=== PATIENT | female | born 1950 | race Caucasian/White ===

== ENCOUNTER → 2017-06-13 | Outpatient (CLI) | payer MEDICARE ==
--- NOTE | 2017-06-13 09:52 | REP ---
DUPLEX DOPPLER EVALUATION OF MESENTERIC ARTERIES: Real-time sonographic evaluation and duplex Doppler interrogation of mesenteric arteries is performed prior to and following a meal challenge. At baseline, the peak systolic velocity of the celiac axis is 113 cm/s, which is normal. The peak systolic velocity of the superior mesenteric artery proximally is 161 cm/s and distally 186 cm/s. Following a meal challenge velocities are measured at 10 minute intervals up to 40 minutes post meal challenge. Peak systolic and end diastolic velocities remain within normal range following the meal challenge. Peak systolic velocity in the proximal superior mesenteric artery reaches a maximum of 173 cm/s 10 minutes after the meal challenge and in the mid aspect of the superior mesenteric artery 260 cm/s at the 20 minute ivett. Normal Doppler spectral waveforms are noted in these vessels as well, pre and post meal challenge. IMPRESSION: No compelling duplex Doppler sonographic evidence of significant stenosis of the celiac axis or superior mesenteric artery. Signed by Doron Salgado MD 06/13/2017 04:39 P
== END ==
LOC: M RAD 06:19
PROVIDERS: ATTEND Specialist
DX: R93.3 Abnormal findings on diagnostic imaging of other parts of digestive tract (principal)

== ENCOUNTER → 2018-04-12 | Outpatient (CLI) | payer MEDICARE ==
[2018-04-12 13:48] LABS: BASO # 0.1 10^3/uL (0.0-0.2); BASO % 2.3 % (0.0-1.0); EOS # 0.2 10^3/uL (0.0-0.50); EOS % 3.6 % (0.0-3.0); HEMATOCRIT 41.3 % (36.0-47.0); HEMOGLOBIN 13.6 g/dl (12.0-15.5); IMMATURE GRANULOCYTE % 0.2 % (0-3.0); LYMPH # 1.2 10^3/uL (1.5-4.5); LYMPH % 21.2 % (24.0-44.0); MEAN CORPUSCULAR HEMOGLOBIN 29.8 pg (27.0-33.0); MEAN CORPUSCULAR HGB CONC 32.9 g/dl (32.0-36.5); MEAN CORPUSCULAR VOLUME 90.4 fl (80.0-96.0); MONO # 0.4 10^3/uL (0.0-0.8); MONO % 7.3 % (0.0-5.0); NEUTROPHILS # 3.7 10^3/uL (1.8-7.7); NEUTROPHILS % 65.4 % (36.0-66.0); PLATELET COUNT, AUTOMATED 289 10^3/uL (150-450); RED BLOOD COUNT 4.57 10^6/uL (4.00-5.40); RED CELL DISTRIBUTION WIDTH 12.5 % (11.5-14.5); WHITE BLOOD COUNT 5.6 10^3/uL (4.0-10.0)
[2018-04-12 14:08] LABS: ERYTHROCYTE SEDIMENTATION RATE 8 mm/hr (0-30)
[2018-04-12 14:17] LABS: ALBUMIN 4.1 GM/DL (3.2-5.2); ALBUMIN/GLOBULIN RATIO 1.24 (1.00-1.93); ALKALINE PHOSPHATASE 62 U/L (45-117); ALT/SGPT 21 U/L (12-78); ANION GAP 11 MEQ/L (8-16); AST/SGOT 20 U/L (7-37); BILIRUBIN,TOTAL 0.4 MG/DL (0.2-1.0); BLOOD UREA NITROGEN 20 MG/DL (7-18); CALCIUM LEVEL 9.7 MG/DL (8.8-10.2); CARBON DIOXIDE LEVEL 28 MEQ/L (21-32); CHLORIDE LEVEL 102 MEQ/L (98-107); CREATININE FOR GFR 1.13 MG/DL (0.55-1.30); GLUCOSE, FASTING 91 MG/DL (70-100); RHEUMATOID FACTOR QUANT < 10.0 IU/ML (<15.0); SODIUM LEVEL 141 MEQ/L (136-145); THYROID STIMULATING HORMONE 0.577 uIU/ML (0.358-3.740); TOTAL PROTEIN 7.4 GM/DL (6.4-8.2)
[2018-04-16 11:21] LABS: ALBUMIN 4.52 GM/DL (3.29-5.55); ALBUMIN % 61.1 % (55.8-66.1); ALPHA-1-GLOBULIN % 4.2 % (2.9-4.9); ALPHA-1-GLOBULINS 0.31 GM/DL (0.17-0.41); ALPHA-2-GLOBULINS 0.92 GM/DL (0.42-0.99); ALPHA-2-GLOBULINS % 12.4 % (7.1-11.8); BETA-1-GLOBULINS 0.51 GM/DL (0.28-0.60); BETA-1-GLOBULINS % 6.9 % (4.7-7.2); BETA-2-GLOBULINS 0.41 GM/DL (0.19-0.55); BETA-2-GLOBULINS % 5.5 % (3.2-6.5); GAMMA GLOBULIN % 9.9 % (11.1-18.8); GAMMA GLOBULINS 0.73 GM/DL (0.65-1.58)
[2018-04-17 00:07] LABS: Lyme Disease IgG Ab 18 kDa Ban Present (.); Lyme Disease IgG Ab 23 kDa Ban Present (.); Lyme Disease IgG Ab 28 kDa Ban Present (.); Lyme Disease IgG Ab 30 kDa Ban Present (.); Lyme Disease IgG Ab 39 kDa Ban Present (.); Lyme Disease IgG Ab 41 kDa Ban Present (.); Lyme Disease IgG Ab 45 kDa Ban Present (.); Lyme Disease IgG Ab 58 kDa Ban Present (.); Lyme Disease IgG Ab 66 kDa Ban Present (.); Lyme Disease IgG Ab 93 kDa Ban Present (.); Lyme Disease IgG West Blot Int Positive (.); Lyme Disease IgM Ab 23 kDa Ban Absent (.); Lyme Disease IgM Ab 39 kDa Ban Absent (.); Lyme Disease IgM Ab 41 kDa Ban Absent (.); Lyme Disease IgM Ab Quantitati <0.80 index (0.00-0.79); Lyme Disease IgM West Blot Int Negative (.)
[2018-04-17 08:06] LABS: ANTINUCLEAR ANTIBODIES DIRECT Negative (Negative); CERULOPLASMIN 22.9 mg/dL (19.0-39.0); COPPER PLASMA 101 ug/dL (72-166); LEAD BLOOD ADULT 2 ug/dL (0-19); MERCURY LEVEL None Detected ug/L (0.0-14.9); VITAMIN B6,PYRIDOXAL PHOSPHATE 7.2 ug/L (2.0-32.8); VITAMIN E(ALPHA TOCOPHEROL) 13.5 mg/L (9.0-29.0); VITAMIN E(GAMMA TOCOPHEROL) 1.7 mg/L (0.5-4.9)
[2018-04-17 10:31] LABS: PTT LUPUS TYPE ANTICOAG SCREEN 0.9 (0-1.2)
== END ==
LOC: M SMT 09:02
DX: R41.3 Other amnesia (principal)
CPT/HCPCS: 82525

== ENCOUNTER → 2018-07-31 | Outpatient (CLI) | payer MEDICARE ==
[2018-07-31 17:29] LABS: BLOOD UREA NITROGEN 9 MG/DL (7-18)
[2018-07-31 17:29] LABS: CREATININE FOR GFR 0.97 MG/DL (0.55-1.30); GLOMERULAR FILTRATION RATE > 60.0 (>45)
== END ==
LOC: M SMT 12:18
DX: R93.3 Abnormal findings on diagnostic imaging of other parts of digestive tract (principal); I77.4 Celiac artery compression syndrome
CPT/HCPCS: 82565

== ENCOUNTER 2019-02-10 17:55 | Emergency (ER) | payer MEDICARE ==
[~2019-02-10] VITALS: Ht 152.4 cm; Wt 62.7 kg
[2019-02-10] MEDS ORDERED: RAMI1CAP24 (18:06)
[2019-02-10] MEDS ORDERED: TRIA37.5 (18:06)
[2019-02-10] MEDS ORDERED: DICY10CA13 (18:06)
[2019-02-10] MEDS ORDERED: LEVO100T5 (18:06)
[2019-02-10] MEDS ORDERED: OMEP-221 (18:06)
[2019-02-10] MEDS ORDERED: DONE10TA90 (18:06)
[2019-02-10] MEDS ORDERED: ATOR1TAB21 (18:06)
[2019-02-10] MEDS ORDERED: KETOROLAC 60 MG/2 ML VIAL (J1885) IM ONE (18:15)
[2019-02-10] MEDS ORDERED: NORC1TAB7 PO (19:33)
[2019-02-10 19:59] VITALS: BP 130/63
[2019-02-10] MEDS ORDERED: NORCO, ANEXSIA 5/325MG TABLET (HYDROcodone/ACETAMINOPHEN) PO ONE (20:15)
--- NOTE | 2019-02-11 08:21 | REP ---
Right rib series: Five views. History: Pain in the lower right rib cage. Injury in a fall. Findings: PA chest radiograph shows no evidence of pneumothorax or hydrothorax. Mediastinum is not widened. Heart size is normal. Lung maxwell are clear. Multiple views of the right ribcage show no visible rib fracture or bony destructive lesion. There are fairly advanced degenerative changes in the shoulder. Degenerative disc disease is seen in the thoracic and lumbar spine. Impression: No rib fracture or bony destructive lesion. No active cardiopulmonary disease. Electronically Signed by Damon Espinal MD 02/11/2019 08:12 A
== END 2019-02-10 20:05 | disposition home or self-care (01) ==
LOC: M ED 17:55
DX: S22.31XA Fracture of one rib, right side, initial encounter for closed fracture (principal); W19.XXXA Unspecified fall, initial encounter; Y92.9 Unspecified place or not applicable; Y93.9 Activity, unspecified; Y99.9 Unspecified external cause status; I10 Essential (primary) hypertension; E03.9 Hypothyroidism, unspecified; Z79.899 Other long term (current) drug therapy
CPT/HCPCS: 71101; 96372; 99284; J1885

== ENCOUNTER 2025-01-24 11:08 | Inpatient (IN) | payer MEDICARE ==
[~2025-01-24] VITALS: Ht 160 cm; Wt 69.0 kg
[~2025-01-24 11:08] MED LIST: ATOR1TAB21 PO; DICY-61; DONE10TA90; LEVO100T5; NORC1TAB7 PO; OMEP40CA5 PO; RAMI5CAP60 PO; TRIA37.5
[2025-01-24 14:12] LABS: BASO % 0.1 % (0.0-1.0); EOS % 0.1 % (0.0-3.0); HEMATOCRIT 28.6 % (36.0-47.0); HEMOGLOBIN 9.9 g/dl (12.0-15.5); LYMPH # 0.5 10^3/uL (1.5-5.0); LYMPH % 3.3 % (24.0-44.0); MEAN CORPUSCULAR HEMOGLOBIN 29.8 pg (27.0-33.0); MEAN CORPUSCULAR HGB CONC 34.6 g/dl (32.0-36.5); MEAN CORPUSCULAR VOLUME 86.1 fl (80.0-96.0); MONO # 0.8 10^3/uL (0.0-0.8); MONO % 5.2 % (2.0-8.0); NEUTROPHILS # 14.5 10^3/uL (1.5-8.5); NEUTROPHILS % 90.9 % (36.0-66.0); PLATELET COUNT, AUTOMATED 213 10^3/uL (150-450); RED BLOOD COUNT 3.32 10^6/uL (4.00-5.40); WHITE BLOOD COUNT 15.9 10^3/uL (4.0-10.0)
[2025-01-24 14:35] LABS: BLOOD UREA NITROGEN 10 MG/DL (9-23); CALCIUM LEVEL 8.9 MG/DL (8.3-10.6); CARBON DIOXIDE LEVEL 24 MMOL/L (20-31); CHLORIDE LEVEL 94 MMOL/L (98-107); CREATININE FOR GFR 0.81 MG/DL (0.55-1.30); GLOMERULAR FILTRATION RATE > 60.0 (>39); GLUCOSE, FASTING 110 MG/DL (74-106); POTASSIUM SERUM 4.6 MMOL/L (3.5-5.1); SODIUM LEVEL 127 MMOL/L (136-145)
[2025-01-24] MEDS ORDERED: NALOXONE INJ 0.4MG/1ML VIAL IV PRN ×2 (14:40→21:00)
[2025-01-24] MEDS: PERCOCET 5MG/325MG TAB PO ONE (15:22)
[2025-01-24] MEDS: KETOROLAC 30 MG/ML 1ML VIAL IV ONE (15:23)
[2025-01-24 15:24] LABS: INR 0.98; PARTIAL THROMBOPLASTIN TIME 25.8 SECONDS (24.8-34.2); PROTHROMBIN TIME 13.3 SECONDS (12.5-14.5)
[2025-01-24] MEDS ORDERED: MEMA10TA PO (17:07)
[2025-01-24] MEDS ORDERED: LEVO112T2 PO (17:07)
[2025-01-24] MEDS ORDERED: RIVA1CAP5 PO (17:07)
[2025-01-24] MEDS ORDERED: SPIR-10 PO (17:07)
[2025-01-24] MEDS ORDERED: LEXA5TAB13 PO (17:07)
[2025-01-24] MEDS ORDERED: FERR32TA PO (17:07)
[2025-01-24] MEDS ORDERED: HOME MED LIST COMPLETE! XX SCH (17:10)
[2025-01-24 18:02] VITALS: BP 136/72; TEMP 98.1; O2SAT 98
[2025-01-24] MEDS: HYDROMORPHONE HCL 0.5 MG/ 0.5 ML SYRINGE IV ONE (19:37)
[2025-01-24] MEDS: NITROGLYCERIN 2% OINT 1 GM *U/D* PKT TOP ONE (19:41)
[2025-01-24 20:00] VITALS: BP 138/71; TEMP 97.7; O2SAT 96
[2025-01-24] MEDS ORDERED: GLUCOSE 4 GM CHEW PO PRN (21:00)
[2025-01-24] MEDS ORDERED: MORPHINE 2 MG/ML 1ML VIAL IV PRN (21:00)
[2025-01-24] MEDS ORDERED: DEXTROSE 50% 50ML SYRINGE IV PRN (21:00)
[2025-01-24] MEDS ORDERED: ACETAMINOPHEN *IV* 1,000 MG in IV 1 EA IV PRN (21:00)
[2025-01-24] MEDS ORDERED: GLUCAGON INJ 1MG VIAL SC PRN (21:00)
[2025-01-24] MEDS: PANTOPRAZOLE 40MG VIAL IV SCH (21:57)
[2025-01-24] MEDS: LR 1,000 ML IV SCH (21:57)
[2025-01-25] VITALS (9 sets, daily range): BP systolic 105–139; BP diastolic 53–72; TEMP 97.2–98.3; O2SAT 94–100
[2025-01-25] MEDS: LEVOTHYROXINE 112MCG TABLET (0.112MG) PO SCH (05:40)
[2025-01-25 06:18] LABS: BASO % 0.2 % (0.0-1.0); EOS % 0.2 % (0.0-3.0); HEMATOCRIT 27.6 % (36.0-47.0); HEMOGLOBIN 9.4 g/dl (12.0-15.5); LYMPH # 1.2 10^3/uL (1.5-5.0); LYMPH % 11.8 % (24.0-44.0); MEAN CORPUSCULAR HEMOGLOBIN 29.7 pg (27.0-33.0); MEAN CORPUSCULAR HGB CONC 34.1 g/dl (32.0-36.5); MEAN CORPUSCULAR VOLUME 87.1 fl (80.0-96.0); MONO # 0.9 10^3/uL (0.0-0.8); MONO % 9.4 % (2.0-8.0); NEUTROPHILS # 7.6 10^3/uL (1.5-8.5); PLATELET COUNT, AUTOMATED 240 10^3/uL (150-450); RED BLOOD COUNT 3.17 10^6/uL (4.00-5.40); WHITE BLOOD COUNT 9.8 10^3/uL (4.0-10.0)
[2025-01-25 06:44] LABS: BLOOD UREA NITROGEN 12 MG/DL (9-23); CALCIUM LEVEL 8.9 MG/DL (8.3-10.6); CARBON DIOXIDE LEVEL 26 MMOL/L (20-31); CHLORIDE LEVEL 96 MMOL/L (98-107); CREATININE FOR GFR 0.91 MG/DL (0.55-1.30); GLOMERULAR FILTRATION RATE > 60.0 (>39); GLUCOSE, FASTING 99 MG/DL (74-106); SODIUM LEVEL 130 MMOL/L (136-145)
[2025-01-25] MEDS ORDERED: LIDOCAINE 2% 100MG/5ML SDV (FOR ANES.) As Ordered ONE (08:38)
[2025-01-25] MEDS ORDERED: propofoL 200 MG/20 ML VIAL As Ordered ONE (08:38)
[2025-01-25] MEDS ORDERED: fentaNYL 100 MCG/2 ML INJECTION As Ordered ONE (08:48)
[2025-01-25] MEDS ORDERED: MORPHINE PRES-FREE INJ 10 MG/10 ML VIAL As Ordered ONE (08:50)
[2025-01-25] MEDS: ceFAZolin SODIUM 2 GM VIAL As Ordered ONE (09:12)
[2025-01-25] MEDS ORDERED: PHENYLEPHRINE 10MG/ML 1ML VIAL As Ordered ONE (09:27)
[2025-01-25] MEDS ORDERED: PHENYLephrine 500MCG 5ML (100MCG/ML) SYRINGE As Ordered ONE (09:34)
[2025-01-25] MEDS: ceFAZolin SODIUM 2 GM in DEXTROSE 5% (D5W) ADV/MINI-BAG 50 ML IV SCH (17:18)
[2025-01-25] MEDS ORDERED: MOM 30ML SUSPENSION UDC PO PRN (18:30)
[2025-01-25] MEDS ORDERED: MIRALAX *UNIT DOSE* 17GM PACKET PO PRN (18:30)
[2025-01-25] MEDS ORDERED: SENOKOT S TAB PO PRN (18:30)
[2025-01-25] MEDS ORDERED: ONDANSETRON 4MG 2ML VIAL IV PRN (18:30)
[2025-01-25] MEDS: ACETAMINOPHEN 500 MG TAB PO SCH (18:47)
[2025-01-25] MEDS: ESCITALOPRAM OXALATE 5MG TABLET (LEXAPRO) PO SCH (18:47)
[2025-01-25] MEDS: FERROUS GLUCONATE 324 MG TAB PO SCH (18:47)
[2025-01-25] MEDS: ENOXAPARIN 40MG/0.4ML SYRINGE (J1650 PER 10MG) SC ONE (18:48)
[2025-01-25] MEDS: ATORVASTATIN 20 MG TAB PO SCH (21:09)
[2025-01-26] VITALS (7 sets, daily range): BP systolic 106–149; BP diastolic 45–61; TEMP 97.5–97.7; O2SAT 94–97
[2025-01-26 06:16] LABS: BASO % 0.2 % (0.0-1.0); EOS % 0.1 % (0.0-3.0); HEMOGLOBIN 7.7 g/dl (12.0-15.5); LYMPH # 1.1 10^3/uL (1.5-5.0); LYMPH % 12.3 % (24.0-44.0); MEAN CORPUSCULAR HEMOGLOBIN 29.4 pg (27.0-33.0); MEAN CORPUSCULAR HGB CONC 33.5 g/dl (32.0-36.5); MEAN CORPUSCULAR VOLUME 87.8 fl (80.0-96.0); MONO # 0.8 10^3/uL (0.0-0.8); MONO % 9.2 % (2.0-8.0); NEUTROPHILS # 6.8 10^3/uL (1.5-8.5); NEUTROPHILS % 77.6 % (36.0-66.0); PLATELET COUNT, AUTOMATED 220 10^3/uL (150-450); RED BLOOD COUNT 2.62 10^6/uL (4.00-5.40); WHITE BLOOD COUNT 8.7 10^3/uL (4.0-10.0)
[2025-01-26 06:36] LABS: BLOOD UREA NITROGEN 12 MG/DL (9-23); CALCIUM LEVEL 8.3 MG/DL (8.3-10.6); CARBON DIOXIDE LEVEL 26 MMOL/L (20-31); CHLORIDE LEVEL 97 MMOL/L (98-107); CREATININE FOR GFR 0.83 MG/DL (0.55-1.30); GLOMERULAR FILTRATION RATE > 60.0 (>39); GLUCOSE, FASTING 97 MG/DL (74-106); POTASSIUM SERUM 4.1 MMOL/L (3.5-5.1); SODIUM LEVEL 132 MMOL/L (136-145)
[2025-01-26] MEDS: ramipriL 5 MG CAP PO SCH (09:45)
[2025-01-26] MEDS: SPIRONOLACTONE 25 MG TAB PO SCH (09:45)
[2025-01-26] MEDS: ENOXAPARIN 40MG/0.4ML SYRINGE (J1650 PER 10MG) SC SCH (09:45)
[2025-01-26] MEDS: traMADol 50 MG TAB PO PRN (11:35)
[2025-01-27] VITALS (9 sets, daily range): BP systolic 112–138; BP diastolic 54–72; TEMP 97.3–98.1; O2SAT 95–98
[2025-01-27 06:18] LABS: BASO % 0.4 % (0.0-1.0); EOS # 0.1 10^3/uL (0.0-0.5); EOS % 1.2 % (0.0-3.0); HEMATOCRIT 21.2 % (36.0-47.0); LYMPH # 1.6 10^3/uL (1.5-5.0); LYMPH % 15.2 % (24.0-44.0); MEAN CORPUSCULAR HEMOGLOBIN 29.2 pg (27.0-33.0); MEAN CORPUSCULAR VOLUME 88.3 fl (80.0-96.0); MONO # 0.6 10^3/uL (0.0-0.8); MONO % 5.2 % (2.0-8.0); NEUTROPHILS # 8.1 10^3/uL (1.5-8.5); NEUTROPHILS % 77.4 % (36.0-66.0); PLATELET COUNT, AUTOMATED 257 10^3/uL (150-450); WHITE BLOOD COUNT 10.5 10^3/uL (4.0-10.0)
[2025-01-27 06:39] LABS: BLOOD UREA NITROGEN 14 MG/DL (9-23); CALCIUM LEVEL 8.1 MG/DL (8.3-10.6); CARBON DIOXIDE LEVEL 26 MMOL/L (20-31); CHLORIDE LEVEL 98 MMOL/L (98-107); CREATININE FOR GFR 0.81 MG/DL (0.55-1.30); GLOMERULAR FILTRATION RATE > 60.0 (>39); GLUCOSE, FASTING 103 MG/DL (74-106); POTASSIUM SERUM 4.2 MMOL/L (3.5-5.1); SODIUM LEVEL 131 MMOL/L (136-145)
[2025-01-27 10:43] LABS: HEMATOCRIT 21.9 % (36.0-47.0); HEMOGLOBIN 7.3 g/dl (12.0-15.5)
[2025-01-28 03:15] VITALS: BP 142/75; TEMP 97.9; O2SAT 97
[2025-01-28 06:00] LABS: BASO # 0.1 10^3/uL (0.0-0.2); BASO % 0.5 % (0.0-1.0); EOS # 0.2 10^3/uL (0.0-0.5); EOS % 1.4 % (0.0-3.0); HEMATOCRIT 27.3 % (36.0-47.0); HEMOGLOBIN 9.2 g/dl (12.0-15.5); LYMPH # 1.7 10^3/uL (1.5-5.0); LYMPH % 14.8 % (24.0-44.0); MEAN CORPUSCULAR HEMOGLOBIN 30.3 pg (27.0-33.0); MEAN CORPUSCULAR HGB CONC 33.7 g/dl (32.0-36.5); MEAN CORPUSCULAR VOLUME 89.8 fl (80.0-96.0); MONO # 0.7 10^3/uL (0.0-0.8); NEUTROPHILS # 8.9 10^3/uL (1.5-8.5); NEUTROPHILS % 75.9 % (36.0-66.0); PLATELET COUNT, AUTOMATED 350 10^3/uL (150-450); RED BLOOD COUNT 3.04 10^6/uL (4.00-5.40); WHITE BLOOD COUNT 11.7 10^3/uL (4.0-10.0)
[2025-01-28 06:31] LABS: BLOOD UREA NITROGEN 10 MG/DL (9-23); CALCIUM LEVEL 8.7 MG/DL (8.3-10.6); CARBON DIOXIDE LEVEL 26 MMOL/L (20-31); CHLORIDE LEVEL 104 MMOL/L (98-107); CREATININE FOR GFR 0.75 MG/DL (0.55-1.30); GLOMERULAR FILTRATION RATE > 60.0 (>39); GLUCOSE, FASTING 96 MG/DL (74-106); POTASSIUM SERUM 4.6 MMOL/L (3.5-5.1); SODIUM LEVEL 137 MMOL/L (136-145)
[2025-01-28 07:40] VITALS: BP 150/74; TEMP 97.5; O2SAT 96
[2025-01-28 12:12] VITALS: BP 168/81; TEMP 97.7; O2SAT 97
[2025-01-28 19:30] VITALS: BP_SYST 144; BP_SYST 164; BP_DIAS 76; BP_DIAS 79; TEMP 98.2; O2SAT 97
[2025-01-29 04:00] VITALS: BP 145/74; TEMP 98.1; O2SAT 97
[2025-01-29 04:56] LABS: BASO # 0.1 10^3/uL (0.0-0.2); BASO % 0.5 % (0.0-1.0); EOS # 0.3 10^3/uL (0.0-0.5); HEMATOCRIT 27.4 % (36.0-47.0); LYMPH # 2.5 10^3/uL (1.5-5.0); LYMPH % 16.7 % (24.0-44.0); MEAN CORPUSCULAR HEMOGLOBIN 29.6 pg (27.0-33.0); MEAN CORPUSCULAR HGB CONC 32.8 g/dl (32.0-36.5); MEAN CORPUSCULAR VOLUME 90.1 fl (80.0-96.0); MONO # 1.1 10^3/uL (0.0-0.8); MONO % 7.8 % (2.0-8.0); NEUTROPHILS # 10.4 10^3/uL (1.5-8.5); NEUTROPHILS % 71.2 % (36.0-66.0); PLATELET COUNT, AUTOMATED 407 10^3/uL (150-450); RED BLOOD COUNT 3.04 10^6/uL (4.00-5.40); WHITE BLOOD COUNT 14.7 10^3/uL (4.0-10.0)
[2025-01-29 05:23] LABS: BLOOD UREA NITROGEN 12 MG/DL (9-23); CALCIUM LEVEL 8.6 MG/DL (8.3-10.6); CARBON DIOXIDE LEVEL 26 MMOL/L (20-31); CHLORIDE LEVEL 102 MMOL/L (98-107); CREATININE FOR GFR 0.81 MG/DL (0.55-1.30); GLOMERULAR FILTRATION RATE > 60.0 (>39); GLUCOSE, FASTING 96 MG/DL (74-106); POTASSIUM SERUM 4.6 MMOL/L (3.5-5.1); SODIUM LEVEL 135 MMOL/L (136-145)
[2025-01-29 08:00] VITALS: BP 138/78; TEMP 97.3; O2SAT 98
[2025-01-29 12:00] VITALS: BP 139/77; TEMP 97.7; O2SAT 98
[2025-01-29] MEDS ORDERED: CLOBETASOL PROP 0.05% OINT 30 GM TOP PRN (16:25)
[2025-01-29 20:00] VITALS: BP 130/69; TEMP 97.5; O2SAT 97
[2025-01-29] MEDS: ANALGESIC BALM CRM 3OZ TOP SCH (21:39)
[2025-01-30] VITALS: BP 153/69; TEMP 97.7; O2SAT 95
[2025-01-30 04:00] VITALS: BP 160/71; TEMP 97.3; O2SAT 95
[2025-01-30 05:16] LABS: BASO # 0.1 10^3/uL (0.0-0.2); BASO % 0.9 % (0.0-1.0); EOS # 0.5 10^3/uL (0.0-0.5); EOS % 4.3 % (0.0-3.0); HEMATOCRIT 28.4 % (36.0-47.0); LYMPH # 2.5 10^3/uL (1.5-5.0); LYMPH % 22.1 % (24.0-44.0); MEAN CORPUSCULAR HEMOGLOBIN 28.8 pg (27.0-33.0); MEAN CORPUSCULAR HGB CONC 31.7 g/dl (32.0-36.5); MONO % 8.4 % (2.0-8.0); NEUTROPHILS # 6.8 10^3/uL (1.5-8.5); NEUTROPHILS % 59.9 % (36.0-66.0); PLATELET COUNT, AUTOMATED 439 10^3/uL (150-450); RED BLOOD COUNT 3.12 10^6/uL (4.00-5.40); WHITE BLOOD COUNT 11.3 10^3/uL (4.0-10.0)
[2025-01-30 05:24] LABS: CALCIUM LEVEL 8.2 MG/DL (8.3-10.6); CREATININE FOR GFR 0.74 MG/DL (0.55-1.30); GLOMERULAR FILTRATION RATE 84.3 (>39); POTASSIUM SERUM 4.6 MMOL/L (3.5-5.1)
[2025-01-30 08:00] VITALS: BP 98/55; TEMP 97.5; O2SAT 99
[2025-01-30 08:18] VITALS: BP 147/71
[2025-01-30] MEDS ORDERED: ACET-683 PO (09:31)
[2025-01-30] MEDS ORDERED: ENOX40IN3 SC (09:34)
== END 2025-01-30 11:27 | DRG 481 ==
LOC: EDBD 11:08 → M ED 11:08 → M ED INP 14:33 → M MSPAV 17:50
PROVIDERS: ADMIT General Practice; ATTEND Student in an Organized Health Care Education/Training Program
PROC: 0QS904Z Reposition Left Femoral Shaft with Internal Fixation Device, Open Approach (ICD-10-PCS; principal; 2025-01-25 08:00)
PROC: 30233N1 Transfusion of Nonautologous Red Blood Cells into Peripheral Vein, Percutaneous Approach (ICD-10-PCS; 2025-01-27)
DX: S72.335A Nondisplaced oblique fracture of shaft of left femur, initial encounter for closed fracture (principal); D62 Acute posthemorrhagic anemia; E03.9 Hypothyroidism, unspecified; F03.90 Unspecified dementia, unspecified severity, without behavioral disturbance, psychotic disturbance, mood disturbance, and anxiety; I16.0 Hypertensive urgency; I10 Essential (primary) hypertension; E78.5 Hyperlipidemia, unspecified; K21.9 Gastro-esophageal reflux disease without esophagitis; W18.09XA Striking against other object with subsequent fall, initial encounter; Y92.019 Unspecified place in single-family (private) house as the place of occurrence of the external cause; Y93.9 Activity, unspecified; Y99.8 Other external cause status; Z79.890 Hormone replacement therapy; Z79.899 Other long term (current) drug therapy

== ENCOUNTER → 2025-02-10 | Outpatient (REF) | payer MEDICARE ==
[~2025-02-10] MED LIST changes: +ACET-683 PO; +ENOX40IN3 SC; +FERR32TA PO; +LEVO112T2 PO; +LEXA5TAB13 PO; +MEMA10TA PO; +RIVA1CAP5 PO; +SPIR-10 PO
== END ==
LOC: M SOG 08:03 → EDSTATUS 02-12 10:32
PROVIDERS: ATTEND Physician Assistant
DX: M79.652 Pain in left thigh (principal)

== ENCOUNTER 2025-06-28 19:29 | Inpatient (IN) | payer MEDICARE ==
[~2025-06-28] VITALS: Ht 152.4 cm; Wt 56.8 kg
[2025-06-28] MEDS: ONDANSETRON 4MG 2ML VIAL IV ONE (20:55)
[2025-06-28 20:57] LABS: PLATELET COUNT, AUTOMATED 288 10^3/uL (150-450)
[2025-06-28 21:22] LABS: CALCIUM LEVEL 9.7 MG/DL (8.3-10.6); CARBON DIOXIDE LEVEL 25.0 MMOL/L (20-31); CHLORIDE LEVEL 101.0 MMOL/L (98-107); CREATININE FOR GFR 0.89 MG/DL (0.55-1.30); GLOMERULAR FILTRATION RATE 67.6 (>39); POTASSIUM SERUM 4.3 MMOL/L (3.5-5.1); SODIUM LEVEL 138.0 MMOL/L (136-145)
[2025-06-28] MEDS ORDERED: MORPHINE 2 MG/ML 1 ML VIAL IV PRN (22:00)
[2025-06-28 22:20] LABS: INR 0.88
[2025-06-28] MEDS: HEPARIN SOD 5000 UNITS/ML 1 ML VIAL/SYRINGE SQ ONE (23:57)
[2025-06-29] MEDS: MORPHINE 2 MG/ML 1 ML VIAL IV PRN (00:01)
[2025-06-29 01:05] VITALS: BP 153/78; TEMP 97.9; O2SAT 99
[2025-06-29] MEDS ORDERED: ESOM40CA35 PO (01:06)
[2025-06-29] MEDS ORDERED: RIVA1CAP7 PO (01:06)
[2025-06-29] MEDS ORDERED: LEXA1TAB PO (01:06)
[2025-06-29] MEDS ORDERED: HOME MED LIST COMPLETE! XX SCH (01:10)
[2025-06-29] MEDS: ACETAMINOPHEN *IV* 1,000 MG in IV 1 EA IV PRN (01:42)
[2025-06-29 05:04] VITALS: BP 121/64; TEMP 97.9; O2SAT 98
[2025-06-29] MEDS: LEVOTHYROXINE 112 MCG TABLET (0.112 MG) PO SCH (06:00)
[2025-06-29 06:40] LABS: KETONE, URINE AUTO RFX TRACE mg/dL (NEGATIVE); LEUKOCYTE ESTERASE UR AUTO RFX NEGATIVE (NEGATIVE); NITRITE, URINE AUTO RFX NEGATIVE (NEGATIVE); RBC, URINE AUTO RFX 2 /HPF (0-3); SQUAM EPITHELIAL CELL UR AURFX 0 /HPF (0-6); WBC, URINE AUTO RFX 1 /HPF (0-3)
[2025-06-29 07:10] LABS: PLATELET COUNT, AUTOMATED 275 10^3/uL (150-450)
[2025-06-29 07:40] LABS: CALCIUM LEVEL 8.9 MG/DL (8.3-10.6); CARBON DIOXIDE LEVEL 27.0 MMOL/L (20-31); CHLORIDE LEVEL 102.0 MMOL/L (98-107); CREATININE FOR GFR 0.89 MG/DL (0.55-1.30); GLOMERULAR FILTRATION RATE 67.6 (>39); MAGNESIUM LEVEL 2.1 MG/DL (1.8-2.4); POTASSIUM SERUM 4.1 MMOL/L (3.5-5.1); SODIUM LEVEL 139.0 MMOL/L (136-145)
[2025-06-29] MEDS: ATORVASTATIN 20 MG TAB PO SCH (08:36)
[2025-06-29] MEDS: PANTOPRAZOLE 40MG TAB PO SCH (08:36)
[2025-06-29] MEDS: FERROUS GLUCONATE 324 MG TAB PO SCH (08:36)
[2025-06-29] MEDS: UNRESOLVED PATIENT OWN MED ORDER XX SCH (09:00)
[2025-06-29] MEDS ORDERED: HYDROMORPHONE HCL 0.5 MG/0.5 ML SYRINGE IV PRN (09:00)
[2025-06-29] MEDS ORDERED: RIVASTIGMINE 6 MG PO SCH (09:00)
[2025-06-29] MEDS ORDERED: ONDANSETRON 4MG 2ML VIAL IV PRN (09:00)
[2025-06-29] MEDS ORDERED: dexmedeTOMIDine (4 MCG/ML) 200 MCG/50 ML BTL As Ordered ONE (09:59)
[2025-06-29] MEDS: TRANEXAMIC ACID 100 MG/ML 10ML VIAL As Ordered ONE (10:45)
[2025-06-29] MEDS ORDERED: LIDOCAINE 2% 100 MG/5 ML SDV (FOR ANES.) As Ordered ONE (12:47)
[2025-06-29] MEDS ORDERED: KETOROLAC 30 MG/ML 1 ML VIAL As Ordered ONE (12:47)
[2025-06-29 15:30] VITALS: BP 112/60; TEMP 97.5; O2SAT 96
[2025-06-29 16:45] VITALS: BP 105/59; TEMP 97.7; O2SAT 97
[2025-06-29 18:00] VITALS: BP 148/55; TEMP 97.7; O2SAT 93
[2025-06-29] MEDS: MEMANTINE 5 MG TABLET PO SCH (20:16)
[2025-06-29] MEDS: ESCITALOPRAM OXALATE 10 MG TABLET PO SCH (20:16)
[2025-06-29] MEDS: ceFAZolin SODIUM 2 GM in DEXTROSE 5% (D5W) ADV/MINI-BAG 50 ML IV SCH (20:19)
[2025-06-29 21:47] VITALS: BP 122/52; TEMP 98.4; O2SAT 92
[2025-06-30 02:00] VITALS: BP 127/57; TEMP 99.3; O2SAT 92
[2025-06-30 07:25] LABS: BASO # 0.0 10^3/uL (0.0-0.2); BASO % 0.4 % (0.0-1.0); EOS # 0.0 10^3/uL (0.0-0.5); EOS % 0.2 % (0.0-3.0); LYMPH # 1.2 10^3/uL (1.5-5.0); LYMPH % 11.0 % (24.0-44.0); MONO # 0.9 10^3/uL (0.0-0.8); MONO % 8.5 % (2.0-8.0); NEUTROPHILS # 8.5 10^3/uL (1.5-8.5); NEUTROPHILS % 79.6 % (36.0-66.0); PLATELET COUNT, AUTOMATED 224 10^3/uL (150-450)
[2025-06-30 07:56] LABS: CALCIUM LEVEL 8.4 MG/DL (8.3-10.6); CARBON DIOXIDE LEVEL 24.0 MMOL/L (20-31); CHLORIDE LEVEL 98.0 MMOL/L (98-107); CREATININE FOR GFR 0.85 MG/DL (0.55-1.30); GLOMERULAR FILTRATION RATE 71.4 (>39); MAGNESIUM LEVEL 1.9 MG/DL (1.8-2.4); POTASSIUM SERUM 4.2 MMOL/L (3.5-5.1); SODIUM LEVEL 133.0 MMOL/L (136-145)
[2025-06-30 10:00] VITALS: BP 130/69; TEMP 97.3; O2SAT 96
[2025-06-30] MEDS: ACETAMINOPHEN 325 MG TAB PO PRN (10:59)
[2025-06-30 14:00] VITALS: BP 114/54; TEMP 97.2; O2SAT 99
[2025-06-30] MEDS: HEPARIN SOD 5000 UNITS/ML 1 ML VIAL/SYRINGE SQ SCH (16:57)
[2025-06-30 19:36] VITALS: BP 122/63; TEMP 96.6
[2025-06-30 20:13] VITALS: BP 124/63
[2025-07-01 06:57] VITALS: BP 110/56; TEMP 97.5; O2SAT 96
[2025-07-01 07:02] LABS: BASO # 0.1 10^3/uL (0.0-0.2); BASO % 0.5 % (0.0-1.0); EOS # 0.1 10^3/uL (0.0-0.5); EOS % 0.7 % (0.0-3.0); LYMPH # 1.4 10^3/uL (1.5-5.0); LYMPH % 14.7 % (24.0-44.0); MONO # 0.9 10^3/uL (0.0-0.8); MONO % 9.3 % (2.0-8.0); NEUTROPHILS # 7.1 10^3/uL (1.5-8.5); NEUTROPHILS % 74.4 % (36.0-66.0); PLATELET COUNT, AUTOMATED 228 10^3/uL (150-450)
[2025-07-01 07:36] LABS: CALCIUM LEVEL 8.2 MG/DL (8.3-10.6); CARBON DIOXIDE LEVEL 28.0 MMOL/L (20-31); CHLORIDE LEVEL 98.0 MMOL/L (98-107); CREATININE FOR GFR 1.02 MG/DL (0.55-1.30); GLOMERULAR FILTRATION RATE 57.4 (>39); MAGNESIUM LEVEL 1.9 MG/DL (1.8-2.4); POTASSIUM SERUM 4.2 MMOL/L (3.5-5.1); SODIUM LEVEL 133.0 MMOL/L (136-145)
[2025-07-01] MEDS ORDERED: OXYC-517 PO (09:51)
[2025-07-01] MEDS ORDERED: HEPA500023 SQ (09:51)
== END 2025-07-01 13:05 | DRG 522 ==
LOC: M ED 19:29 → M ED INP 21:57 → M MS5PR 06-29 01:06
PROVIDERS: ADMIT Student in an Organized Health Care Education/Training Program; ATTEND Internal Medicine
PROC: 0SRR0J9 Replacement of Right Hip Joint, Femoral Surface with Synthetic Substitute, Cemented, Open Approach (ICD-10-PCS; principal; 2025-06-28)
DX: S72.001A Fracture of unspecified part of neck of right femur, initial encounter for closed fracture (principal); E87.1 Hypo-osmolality and hyponatremia; I10 Essential (primary) hypertension; E03.9 Hypothyroidism, unspecified; F03.90 Unspecified dementia, unspecified severity, without behavioral disturbance, psychotic disturbance, mood disturbance, and anxiety; D64.9 Anemia, unspecified; E78.5 Hyperlipidemia, unspecified; K21.9 Gastro-esophageal reflux disease without esophagitis; F39 Unspecified mood [affective] disorder; W18.30XA Fall on same level, unspecified, initial encounter; Y92.009 Unspecified place in unspecified non-institutional (private) residence as the place of occurrence of the external cause; Z79.899 Other long term (current) drug therapy; Z79.890 Hormone replacement therapy; Z96.641 Presence of right artificial hip joint; M81.0 Age-related osteoporosis without current pathological fracture

== ENCOUNTER 2025-07-01 11:32 | Inpatient (IN) | payer MEDICARE ==
[~2025-07-01] VITALS: Ht 152.4 cm; Wt 65.7 kg
[~2025-07-01 11:32] MED LIST changes: +ESOM40CA35 PO; +HEPA500023 SQ; +LEXA1TAB PO; +OXYC-517 PO; +RIVA1CAP7 PO
[2025-07-01] MEDS ORDERED: BISACODYL 10 MG SUPP PR PRN (11:45)
[2025-07-01] MEDS ORDERED: MIRALAX *UNIT DOSE* 17 GM PACKET PO PRN (11:45)
[2025-07-01] MEDS ORDERED: ONDANSETRON 4MG TAB PO PRN (11:45)
[2025-07-01] MEDS: ACETAMINOPHEN 500 MG TAB PO SCH (16:04)
[2025-07-01 20:00] VITALS: BP 150/68; TEMP 97; O2SAT 95
[2025-07-01] MEDS: ENOXAPARIN 40 MG/0.4 ML SYRINGE (J1650 PER 10MG) SC SCH (20:18)
[2025-07-01] MEDS: ESCITALOPRAM OXALATE 10 MG TABLET PO SCH (20:18)
[2025-07-01] MEDS: RIVASTIGMINE 6 MG PO SCH (20:19)
[2025-07-01] MEDS: MEMANTINE 5 MG TABLET PO SCH (20:19)
[2025-07-01] MEDS: SENNA 8.6 MG TAB PO SCH (20:22)
[2025-07-01] MEDS: DOCUSATE SODIUM 100 MG CAPSULE PO SCH (20:22)
[2025-07-02 04:00] VITALS: BP 111/58; TEMP 98.2; O2SAT 96
[2025-07-02] MEDS: LEVOTHYROXINE 112 MCG TABLET (0.112 MG) PO SCH (06:10)
[2025-07-02 07:23] LABS: PLATELET COUNT, AUTOMATED 261 10^3/uL (150-450)
[2025-07-02] MEDS: FERROUS GLUCONATE 324 MG TAB PO SCH (07:37)
[2025-07-02] MEDS: ATORVASTATIN 20 MG TAB PO SCH (07:37)
[2025-07-02] MEDS: PANTOPRAZOLE 40MG TAB PO SCH (07:37)
[2025-07-02 07:48] LABS: ALT/SGPT 13.0 U/L (7.0-40); AST/SGOT 43.0 U/L (<34); CALCIUM LEVEL 8.6 MG/DL (8.3-10.6); CARBON DIOXIDE LEVEL 28.0 MMOL/L (20-31); CHLORIDE LEVEL 96.0 MMOL/L (98-107); CREATININE FOR GFR 0.82 MG/DL (0.55-1.30); GLOMERULAR FILTRATION RATE 74.6 (>39); POTASSIUM SERUM 4.2 MMOL/L (3.5-5.1); SODIUM LEVEL 133.0 MMOL/L (136-145)
[2025-07-02 12:00] VITALS: BP 120/57; TEMP 97.9; O2SAT 97
[2025-07-02 19:50] VITALS: BP 123/60; TEMP 98.7; O2SAT 98
[2025-07-03 03:30] VITALS: BP 148/68; TEMP 97.9; O2SAT 100
[2025-07-03 12:00] VITALS: BP 143/72; TEMP 98.6; O2SAT 100
[2025-07-03 20:00] VITALS: BP 143/63; TEMP 97.4; O2SAT 100
[2025-07-04 04:01] VITALS: BP 150/65; TEMP 98; O2SAT 99
[2025-07-04 08:26] LABS: PLATELET COUNT, AUTOMATED 409 10^3/uL (150-450)
[2025-07-04 12:00] VITALS: BP 134/70; TEMP 98; O2SAT 100
[2025-07-04 12:07] LABS: CALCIUM LEVEL 8.7 MG/DL (8.3-10.6); CARBON DIOXIDE LEVEL 26.0 MMOL/L (20-31); CHLORIDE LEVEL 96.0 MMOL/L (98-107); CREATININE FOR GFR 0.78 MG/DL (0.55-1.30); GLOMERULAR FILTRATION RATE 79.2 (>39); POTASSIUM SERUM 4.6 MMOL/L (3.5-5.1); SODIUM LEVEL 131.0 MMOL/L (136-145)
[2025-07-04 14:09] LABS: MAGNESIUM LEVEL 2.2 MG/DL (1.8-2.4)
[2025-07-04 14:10] LABS: OSMOLALITY SERUM 279.0 MOSM/KG (280-301)
[2025-07-04 19:12] LABS: OSMOLALITY SERUM 279.0 MOSM/KG (280-301)
[2025-07-04 19:13] LABS: CALCIUM LEVEL 8.6 MG/DL (8.3-10.6); CARBON DIOXIDE LEVEL 26.0 MMOL/L (20-31); CHLORIDE LEVEL 97.0 MMOL/L (98-107); CREATININE FOR GFR 0.77 MG/DL (0.55-1.30); GLOMERULAR FILTRATION RATE 80.4 (>39); POTASSIUM SERUM 4.1 MMOL/L (3.5-5.1); SODIUM LEVEL 133.0 MMOL/L (136-145)
[2025-07-04 19:16] LABS: THYROXINE (T4) 6.9 UG/DL (4.5-10.9)
[2025-07-04 19:18] LABS: T UPTAKE 33.0 % (22.5-37.0)
[2025-07-04 20:00] VITALS: BP 125/62; TEMP 97.3; O2SAT 98
[2025-07-05 04:00] VITALS: BP 139/65; TEMP 97.5; O2SAT 96
[2025-07-05 09:58] LABS: CALCIUM LEVEL 8.7 MG/DL (8.3-10.6); CARBON DIOXIDE LEVEL 28.0 MMOL/L (20-31); CHLORIDE LEVEL 99.0 MMOL/L (98-107); CREATININE FOR GFR 0.83 MG/DL (0.55-1.30); GLOMERULAR FILTRATION RATE 73.5 (>39); POTASSIUM SERUM 4.6 MMOL/L (3.5-5.1); SODIUM LEVEL 131.0 MMOL/L (136-145)
[2025-07-05 11:43] VITALS: BP 107/55; TEMP 98.9; O2SAT 95
[2025-07-05 20:02] VITALS: BP 103/55; TEMP 98.4; O2SAT 98
[2025-07-06 04:00] VITALS: BP 134/61; TEMP 97.2; O2SAT 94
[2025-07-06 12:25] VITALS: BP 129/61; TEMP 98.1; O2SAT 97
[2025-07-06 20:00] VITALS: BP 123/58; TEMP 97.5; O2SAT 96
[2025-07-06] MEDS: QUEtiapine FUMARATE 12.5 MG HALF-TAB PO PRN (20:13)
[2025-07-07 04:00] VITALS: BP 161/75; TEMP 97.3; O2SAT 98
[2025-07-07 05:00] VITALS: BP 142/58
[2025-07-07 07:30] LABS: PLATELET COUNT, AUTOMATED 477 10^3/uL (150-450)
[2025-07-07 12:00] VITALS: BP 165/68; TEMP 97.6; O2SAT 100
[2025-07-07] MEDS: RIVASTIGMINE 6 MG PO SCH (17:32)
[2025-07-07 19:43] VITALS: BP 129/61; TEMP 98.1; O2SAT 97
[2025-07-08 04:00] VITALS: BP 154/67; TEMP 98.1; O2SAT 93
[2025-07-08] MEDS ORDERED: SENN18TA PO (11:45)
[2025-07-08] MEDS ORDERED: ASPI81TAEC PO (11:45)
[2025-07-08] MEDS ORDERED: COLA100C5 PO (11:45)
[2025-07-08] MEDS ORDERED: QUET1TAB17 PO (11:45)
[2025-07-08] MEDS ORDERED: ACET-683 PO (11:45)
[2025-07-08 12:00] VITALS: BP 133/61; TEMP 97.7; O2SAT 99
[2025-07-08 20:00] VITALS: BP 138/60; TEMP 97.6; O2SAT 100
[2025-07-08 21:31] VITALS: BP 138/60
[2025-07-09 04:00] VITALS: BP 138/68; TEMP 97.8; O2SAT 97
[2025-07-09 12:00] VITALS: BP 158/73; TEMP 98; O2SAT 100
[2025-07-28] MEDS ORDERED: ASPIRIN 81 MG ENTERIC TABLET PO SCH (21:00)
== END 2025-07-09 13:30 | disposition home health service (06) | DRG 560 ==
LOC: M PM&R 13:15
PROVIDERS: ADMIT Student in an Organized Health Care Education/Training Program; ATTEND Physical Medicine & Rehabilitation
DX: S72.001D Fracture of unspecified part of neck of right femur, subsequent encounter for closed fracture with routine healing (principal); E87.1 Hypo-osmolality and hyponatremia; F03.90 Unspecified dementia, unspecified severity, without behavioral disturbance, psychotic disturbance, mood disturbance, and anxiety; K21.9 Gastro-esophageal reflux disease without esophagitis; I10 Essential (primary) hypertension; E78.5 Hyperlipidemia, unspecified; Z96.641 Presence of right artificial hip joint; G89.18 Other acute postprocedural pain; K59.00 Constipation, unspecified; D50.9 Iron deficiency anemia, unspecified; F39 Unspecified mood [affective] disorder; Z79.899 Other long term (current) drug therapy; Z79.890 Hormone replacement therapy; W18.30XD Fall on same level, unspecified, subsequent encounter; Y92.009 Unspecified place in unspecified non-institutional (private) residence as the place of occurrence of the external cause

== ENCOUNTER → 2025-07-11 | Outpatient (CLI) | payer MEDICARE ==
[~2025-07-11] MED LIST changes: +ASPI81TAEC PO; +COLA100C5 PO; +QUET1TAB17 PO; +SENN18TA PO
== END ==
LOC: M SOG 07:36
PROVIDERS: ATTEND Physician Assistant
DX: M25.551 Pain in right hip (principal); Z96.641 Presence of right artificial hip joint

== ENCOUNTER → 2025-07-17 | Outpatient (CLI) | payer MEDICARE | LOC: M SOG 13:03 | PROVIDERS: ATTEND Neuromusculoskeletal Medicine, Sports Medicine | DX: S72.001D Fracture of unspecified part of neck of right femur, subsequent encounter for closed fracture with routine healing (principal) ==

== ENCOUNTER → 2025-08-15 | Outpatient (CLI) | payer MEDICARE | LOC: M SOG 07:35 | PROVIDERS: ATTEND Physician Assistant | DX: M25.551 Pain in right hip (principal) ==

== ENCOUNTER → 2025-09-26 | Outpatient (CLI) | payer MEDICARE | LOC: M SOG 07:38 | PROVIDERS: ATTEND Physician Assistant | DX: Z96.641 Presence of right artificial hip joint (principal) ==